=== PATIENT | male | born 1975 | race American Indian/Alaskan Native ===

== ENCOUNTER 2019-05-15 08:34 | Emergency (ER) | payer OTHER ==
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
[2019-05-15 09:07] LABS: CHLORIDE,CL 103 mEq/L (98-106); SODIUM,NA 142 mEq/L (136-145)
== END 2019-05-15 09:50 | disposition home or self-care (01) ==
LOC: CC.ED 08:34
DX: S43.492A Other sprain of left shoulder joint, initial encounter (principal); S16.1XXA Strain of muscle, fascia and tendon at neck level, initial encounter; S50.811A Abrasion of right forearm, initial encounter; V43.52XA Car driver injured in collision with other type car in traffic accident, initial encounter
CPT/HCPCS: 36415; 72050; 73030-LT; 80053; 82150; 83605; 85025; 85610; 99284-25